=== PATIENT | male | born 1970 | race Caucasian/White ===

== ENCOUNTER → 2020-12-21 20:18 | Outpatient (REF) | payer BC, SELFPAY | LOC: HO.SL 20:18 | PROVIDERS: Visit Provider Otolaryngology | DX: R06.83 Snoring (principal); F51.11 Primary hypersomnia; G47.39 Other sleep apnea | CPT/HCPCS: 95810 ==

== ENCOUNTER 2024-03-12 18:51 | Emergency (ER) | payer BC, SELFPAY ==
--- NOTE | ~2024-03-12 | US_ITS ---
EXAMINATION: US ABDOMEN LIMITED CLINICAL INFORMATION: Right upper quadrant pain with nausea and vomiting. COMPARISON: None available. TECHNIQUE: Real-time imaging of the gallbladder and common bile duct only was performed. FINDINGS: GALLBLADDER: The gallbladder is slightly distended but without evidence of stones, sludge, polyps, wall thickening or pericholecystic fluid. Dennis's sign is positive. COMMON BILE DUCT: Normal in caliber measuring 0.4 cm in diameter. US/US abdomen limited IMPRESSION: Normal-appearing gallbladder and common bile duct. However, Dennis's sign is positive. Electronically signed by: Mikey Padilla MD 03/13/2024 12:35 AM EDT
--- NOTE | ~2024-03-12 | CT_ITS ---
EXAMINATION: CT ABDOMEN AND PELVIS WITH CONTRAST CLINICAL INFORMATION: Abdominal pain. COMPARISON: None available. TECHNIQUE: Multidetector volumetric images were obtained from the superior aspect of the liver through the pubic symphysis following administration 85 mL of Omnipaque 350 intravenous contrast. Sagittal and coronal reformatted images were obtained on the technologist's workstation. Oral contrast: No This CT examination was performed using dose optimization techniques as appropriate, variously including the following: *Automated exposure control *Adjustment of mA and/or kV according to patient size (this includes techniques or standardized protocols for targeted exams where dose is matched to indication/reason for exam; i.e. extremities or head) *Use of iterative reconstruction technique DLP: 950 mGy-cm FINDINGS: LUNG BASES: There is mild scarring at the anterior left lung base. LIVER, GALLBLADDER, AND BILIARY TREE: The liver is slightly irregular in contour. No focal liver lesions are seen. There is no intrahepatic biliary duct dilatation. Single small gallstone is noted. PANCREAS: Unremarkable. SPLEEN: Spleen is mildly enlarged measuring up to 15 cm. ADRENAL GLANDS: Unremarkable. KIDNEYS AND URETERS: The kidneys are normal in size, shape, and attenuation. No hydronephrosis, hydroureter, or calculi seen. No perinephric stranding. There are scattered bilateral renal cysts measuring up to 2.5 cm mid upper pole right kidney. There is no hydronephrosis. BLADDER: Unremarkable. GASTROINTESTINAL TRACT: The small and large bowel are unremarkable. There is thickening of the visualized distal esophagus. The appendix is unremarkable. ABDOMINAL WALL: No significant hernia is appreciated. LYMPH NODES: Normal. VASCULAR: There is mild atherosclerotic plaque of the abdominal aorta. PELVIC VISCERA: Unremarkable. OSSEOUS STRUCTURES: There is diffuse thoracolumbar degenerative change. CT/CT abdomen pelvis w IV con IMPRESSION: Slightly irregular contour of the liver and mild splenomegaly suggestive of hepatocellular disease/early cirrhosis. Clinical correlation needed. Single small gallstone. Bilateral renal cysts. Thickening of the visualized distal esophagus possibly esophagitis. Fleischner guidelines were followed. Electronically signed by: Martin Fischer MD 03/13/2024 01:46 AM EDT
[2024-03-12 19:32] VITALS: BP 154/94; PULSE 91; RESP 16; TEMP 37; O2SAT 98; BMI 32.1
--- NOTE | 2024-03-12 19:34 | ED_ITS ---
HPI - Nausea/Vomiting/Diarrhea General Chief complaint: Abdominal Pain Stated complaint: vomiting, dehydration. Sent from urgent care Time Seen by Provider: 03/12/24 22:29 Source: patient and old records reviewed Mode of arrival: ambulatory Limitations: no limitations History of Present Illness ED Provider: KEVIN RAY Narrative: 53 yo male with PMH of HTN, DM here with c/o RUQ pain and n/v since Sunday. He has not been able to eat or drink due to vomiting. He also notes no BM since then but he is not eating. He has not had abdominal surgery in the past. He denies prior hx of this in in the past. He is blaming his symptoms on undercooked sausage at [employer]. He denies sick contacts or travel. MD elicited complaint: nausea, vomiting and abdominal pain Onset (ago): day(s) (Sunday) Description of vomiting: food contents Associated nausea: Yes Associated abdominal pain: Yes Location of pain: epigastric and RUQ Radiation: diffuse Pain consistency: constant Severity: moderate Quality: aching Exacerbating factors: eating Relieving factors: none Associated symptoms: loss of appetite, malaise, nausea/vomiting and other (constipation) Related Data Previous Rx's ?Medication ?Instructions ?Recorded famotidine 20 mg tablet (Pepcid) 20 mg PO DAILY PRN abdominal 03/13/24 discomfort #30 tabs ondansetron 4 mg disintegrating 4 mg PO Q8H PRN nausea and 03/13/24 tablet vomiting #20 tabs Allergies Allergy/AdvReac Type Severity Reaction Status Date / Time No Known Allergies Allergy Verified 03/12/24 19:38 Review of Systems 2 Review of Systems: Constitutional : No Weight loss, No Fever, No Chills ENT/Mouth : No sore throat, No Rhinorrhea Eyes: No Swelling, No Redness Cardiovascular : No Chest Pain, No SOB, NoEdema Respiratory : No Cough, No Sputum, No Wheezing Gastrointestinal : Positive Nausea, Positive Vomiting, no Diarrhea, positive abdominal Pain, No Hematochezia, No Melena, pos constipation Genitourinary : No Dysuria, No Urinary Frequency, No Hematuria, No Urgency Musculoskeletal : No joint pain, No Myalgias, No Joint Swelling Skin : No Skin Lesions, No rash Neuro : No Weakness, No Numbness, No Dizziness, No Headache Psych : No Anxiety/Panic, No Depression All other systems reviewed and are negative. Gastrointestinal: Gastrointestinal: Reports nausea PMFSH Past Medical History Attestation statement: The following information was validated with the patient. Source: old records reviewed Medical History Diabetes mellitus HTN (hypertension) Social History Social History Smoked in Last 30 Days: No Use of substances other than those prescribed or required for medical reasons: No Advance Directives: No Advance Directives Information Provided: No Do you have a plan to hurt others: No Plan Physical Exam 2 Vital Signs: Vital Signs: Last Vital Signs Temp 99.5 F 03/12/24 23:47 Pulse 72 03/12/24 23:47 Resp 18 03/12/24 23:47 BP 165/86 H 03/12/24 23:47 Pulse Ox 99 03/12/24 23:47 O2 Del Method Room Air 03/12/24 23:47 BMI result Body Mass Index 32.1 Appearance: Alert. Oriented X3. No acute distress. Eyes: Pupils equal, round and reactive to light. ENT: Pharynx normal. Neck: Normal inspection. Neck supple. CVS: Normal heart rate and rhythm. Pulses normal. Respiratory: No respiratory distress. Breath sounds normal. Abdomen: Soft and moderate RUQ ttp + yeh's sign Skin: Skin warm and dry. Normal skin color. Normal skin turgor. Extremities: No lower extremity edema. Neuro: Oriented X 3. No motor deficit. No sensory deficit. Course Course Course Narrative: This is a Rapid Medical Exam performed in triage by Starr Vieira PA-C. Full HPI, ROS and PE to be performed by primary ED provider. 53 yo M presenting to the ED c/o upper abdominal pain, nausea, vomiting, constipation x Sunday night. +intermittent fever (Tmax 102). Admits had a sausage that may have been undercooked prior to sx. Feels like he needs to have BM but cannot, last BM .. is passing gas. denies rectal pressure, diarrhea. sent to ED from for suspected dehydration. PE: soft, mild epigastric tenderness. Plan: labs, UA Medications Administered Discontinued Medications Generic Name Dose Route Start Last Admin Trade Name Freq PRN Reason Stop Dose Admin Sodium Chloride 1,000 mls @ 999 mls/hr 03/12/24 19:45 03/13/24 00:25 Ns IV 03/12/24 20:45 Infused .Q1H1M CASEY Infusion Sodium Chloride 1,000 mls @ 999 mls/hr 03/12/24 22:49 03/13/24 00:25 Ns IV 03/12/24 23:49 Infused .Q1H1M ONE Infusion Iohexol 85 ml 03/13/24 00:36 03/13/24 00:37 Iohexol 350 Mg/Ml 100 Ml Infus..Btl IV 03/13/24 00:37 85 ml ONCE ONE Administration Ketorolac Tromethamine 15 mg 03/12/24 22:49 03/12/24 23:03 Ketorolac Tromethamine 15 Mg/Ml Vial IVPUSH 03/12/24 22:50 15 mg ONCE ONE Administration Ondansetron HCl 4 mg 03/12/24 22:49 03/12/24 23:03 Ondansetron Hcl 4 Mg/2 Ml Vial IVPUSH 03/12/24 22:50 4 mg ONCE ONE Administration Medical Decision Making Medical Decision Making [facility] Narrative: 53 yo male with PMH of HTN, DM here with c/o RUQ pain nausea and constipation since Sunday at this time will obtain basic labs, US to evaluate for GB pathology - IVF x 2L, toradol and zofran ordered. Differential Diagnosis Differential Diagnoses: The differential diagnosis associated with the presentation includes gastritis, GERD, biliary colic, pancreatitis Admission/Observation Consideration of admission/observation: Escalation of care including admission/observation considered Lab Data [facility] Lab Attestation statement: I reviewed the patient's lab results. 03/12/24 20:24 03/12/24 20:24 Labs: Lab Results 03/12/24 Range/Units 20:24 WBC 9.8 (4.8-10.8) X10*3/uL RBC 5.69 (4.60-5.80) X10*6/uL Hgb 19.0 H (14.0-18.0) g/dl Hct 50.9 (42.0-52.0) % MCV 89.5 (80.0-98.0) fL MCH 33.4 H (27.0-33.0) pg MCHC 37.3 H (31.0-36.0) g/dl RDW 12.2 (11.0-16.0) % Plt Count 217 (160-400) X10*3/uL MPV 10.2 (9.4-12.4) fL Immature Gran % (Auto) 0.3 (0.0-0.4) % Neut % (Auto) 66.8 (45-73) % Lymph % (Auto) 22.8 (20-40) % [place] % (Auto) 8.7 (2-11) % Eos % (Auto) 0.5 (0-4) % Baso % (Auto) 0.9 (0-2) % Lymph # (Auto) 2.2 (1.2-4.9) X10*3/uL [place] # (Auto) 0.9 (0.1-1.2) X10*3/uL Eos # (Auto) 0.1 (0.0-0.4) X10*3/uL Baso # (Auto) 0.1 (0.0-0.2) X10*3/uL Abs Immat Gran (auto) 0.03 (0.00-0.03) X10*3/uL Absolute Neuts (auto) 6.5 (2.0-8.3) x10*3/uL Absolute Nucleated RBC 0.000 (0.0-0.012) X10*3/uL Nucleated RBC % (auto) 0.0 (0.0-0.2) /100WBC Sodium 139 (135-145) mmol/L Potassium 3.4 (3.3-5.1) mmol/L Chloride 104 (96-108) mmol/L Carbon Dioxide 23 (22-29) mmol/L Anion Gap 15 (12-20) BUN 7 L (9-16) mg/dL Creatinine 0.81 (0.5-1.4) mg/dL Estim Creat Clear Calc 118.3 Estimated GFR > 60 Random Glucose 121 H (60-115) mg/dL Calcium 10.0 (8.4-10.2) mg/dL Magnesium 2.5 (1.6-2.6) mg/dL Total Bilirubin 1.7 H (0.0-1.0) mg/dL Direct Bilirubin 0.6 H (0.0-0.5) mg/dL AST 17 (5-37) U/L ALT 26 (0-40) U/L Alkaline Phosphatase 70 (39-117) U/L Total Protein 8.1 H (6.5-8.0) g/dL Albumin 5.0 (3.5-5.0) g/dL Lipase 30 (8-78) U/L Urine Color Dark Yellow Urine Appearance Clear Urine pH 7.0 (5.0-9.0) Ur Specific [place] 1.020 (1.005-1.025) Urine Protein Trace (Neg-Trace) mg/dL Urine Glucose (UA) Negative (Negative) mg/dL Urine Ketones 15 (Negative) mg/dL Urine Blood Negative (Negative) Urine Nitrite Negative (Negative) Ur Leukocyte Esterase Trace H (Negative) Urine RBC 0-2 (0-2) /HPF Urine WBC 0-5 (0-5) /HPF Ur Squamous Epith Cells 0-2 (0-2) /HPF Urine Bacteria None Seen (None Seen) Hyaline Casts 0-2 (0-2) /LPF Influenza Type A (PCR) NEGATIVE (Negative) Influenza Type B (PCR) NEGATIVE (Negative) RSV RNA Qual (PCR) NEGATIVE (Negative) SARS-CoV-2 RNA (RT-PCR) NEGATIVE (Negative) Independent Interpretation I performed an independent interpretation of an: Ultrasound (normal ) and CT Scan Radiology Impression Discussion of test interpretation with radiology: I have reviewed the radiologist's reading. External Record Review External record reviewed: Office record Prescription Management I considered prescription management with: Other Discharge Plan Discharge Clinical Impression: Abdominal pain Qualifiers: Abdominal location: right upper quadrant Qualified Code(s): R10.11 - Right upper quadrant pain Nausea & vomiting Qualifiers: Vomiting type: unspecified Qualified Code(s): R11.2 - Nausea with vomiting, unspecified Gallstone Qualifiers: Cholecystitis presence: without cholecystitis Biliary obstruction: without biliary obstruction Qualified Code(s): K80.20 - Calculus of gallbladder without cholecystitis without obstruction Patient Disposition: Home, Self-Care Instructions: Acute Nausea and Vomiting (ED), Abdominal Pain (ED) Additional Instructions: eat a bland diet return for any worsening symptoms or concerns ultrasound of the gallbladder was normal stay hydrated follow up with your doctor as needed Prescriptions: New famotidine [Pepcid] 20 mg tablet 20 mg PO DAILY PRN (Reason: abdominal discomfort) Qty: 30 0RF ondansetron 4 mg tablet,disintegrating 4 mg PO Q8H PRN (Reason: nausea and vomiting) Qty: 20 0RF Stand Alone Forms: Work/School Release Discharge Date/Time: 03/13/24 03:10 Print Language: Spanish
--- NOTE | 2024-03-12 20:25 | MHC.EDTECH ---
Patient brought into triage area,labs,sars/flu/rsv,and urine obtained and sent to lab.
[2024-03-12 20:33] LABS: MANUAL DIFF FLAG NO
[2024-03-12 20:36] LABS: Appearance Urine Clear; Color Urine Dark Yellow; Glucose Urine UA Negative (Negative); Leukocyte Esterase Urine Trace (Negative); Nitrite Urine Negative (Negative); UMIC TRIGGER UACC YES; Urine Blood Negative (Negative); Urine Ketones 15 mg/dL (Negative); Urine Protein Trace mg/dL (Neg-Trace)
[2024-03-12 20:38] LABS: Bacteria Urine None Seen (None Seen); Hyaline Casts Urine 0-2 /LPF (0-2); RBC Urine 0-2 /HPF (0-2); Squamous Epithelial Cell Urine 0-2 /HPF (0-2); WBC Urine 0-5 /HPF (0-5)
[2024-03-12 21:01] LABS: Alanine Aminotransferase 26 U/L (0-40); Alkaline Phosphatase 70 U/L (39-117); Anion Gap 15 (12-20); Aspartate Amino Transferase 17 U/L (5-37); Bilirubin Direct 0.6 mg/dL (0.0-0.5); Bilirubin Total 1.7 mg/dL (0.0-1.0); Blood Urea Nitrogen 7 mg/dL (9-16); Carbon Dioxide 23 mmol/L (22-29); Chloride 104 mmol/L (96-108); Creatinine Clr Calc Pharmacy 118.3; Estimated Glomerular Filt Rate > 60; Glucose Random 121 mg/dL (60-115); Lipase 30 U/L (8-78); Magnesium 2.5 mg/dL (1.6-2.6); Potassium 3.4 mmol/L (3.3-5.1); Sodium 139 mmol/L (135-145); Total Protein 8.1 g/dL (6.5-8.0)
[2024-03-12 21:10] LABS: Basophils Absolute Auto 0.1 X10*3/uL (0.0-0.2); Basophils Percent Auto 0.9 % (0-2); Eosinophils Absolute Auto 0.1 X10*3/uL (0.0-0.4); Eosinophils Percent Auto 0.5 % (0-4); Hematocrit 50.9 % (42.0-52.0); Imm Gran Abs Auto 0.03 X10*3/uL (0.00-0.03); Imm Gran Pct Auto 0.3 % (0.0-0.4); Lymphocytes Absolute Auto 2.2 X10*3/uL (1.2-4.9); Lymphocytes Percent Auto 22.8 % (20-40); Mean Corpuscular HGB Conc 37.3 g/dl (31.0-36.0); Mean Corpuscular Hemoglobin 33.4 pg (27.0-33.0); Mean Corpuscular Volume 89.5 fL (80.0-98.0); Mean Platelet Volume 10.2 fL (9.4-12.4); Monocytes Absolute Auto 0.9 X10*3/uL (0.1-1.2); Monocytes Percent Auto 8.7 % (2-11); Neutrophils Absolute Auto 6.5 x10*3/uL (2.0-8.3); Neutrophils Percent Auto 66.8 % (45-73); Platelet Count 217 X10*3/uL (160-400); Red Blood Count 5.69 X10*6/uL (4.60-5.80); Red Cell Distribution Width 12.2 % (11.0-16.0); White Blood Count 9.8 X10*3/uL (4.8-10.8)
[2024-03-12 21:20] LABS: Influenza A PCR NEGATIVE (Negative); Influenza B PCR NEGATIVE (Negative); Resp Syncy Virus RNA Qual PCR NEGATIVE (Negative); SARS COV2 PCR INHOUSE NEGATIVE (Negative)
[2024-03-12 22:31] VITALS: BP 191/101; PULSE 81; RESP 16; TEMP 37.3; O2SAT 97
[2024-03-12 22:34] VITALS: BP 158/95
[2024-03-12] MEDS: 0.9 % Sodium Chloride 1,000 ML 999 ML IV ×2 (22:37→23:03)
--- NOTE | 2024-03-12 22:41 | PC.NURSE ---
a&ox4. vss and up to date aside from being hypertensive. pt verbalizes recent dx of HTN - unaware on what he takes for BP medication. pt c/o 09/25 upper abd pain w/ associated n/v/constipation x sunday. pt also reports fever/chills. 20gIV placed in the right AC - IVF administered per provider order. plan of care ongoing. call willis placed within reach.
[2024-03-12] MEDS: ondansetron HCL 4 MG/2 ML VIAL IVPUSH (23:03)
[2024-03-12] MEDS: Ketorolac Tromethamine 15 MG/ML VIAL IVPUSH (23:03)
[2024-03-12 23:47] VITALS: BP 165/86; PULSE 72; RESP 18; TEMP 37.5; O2SAT 99
[2024-03-13] MEDS: iohexoL 350 MG/ML 100 ML INFUS..BTL 85 ML IV (00:37)
== END 2024-03-13 03:10 | disposition home or self-care (01) ==
PROVIDERS: Physician Assistant; Emergency Provider Emergency Medicine; PCP Internal Medicine
DX: K80.20 Calculus of gallbladder without cholecystitis without obstruction (principal); R11.2 Nausea with vomiting, unspecified; R10.11 Right upper quadrant pain; Z03.818 Encounter for observation for suspected exposure to other biological agents ruled out; E11.9 Type 2 diabetes mellitus without complications; I10 Essential (primary) hypertension
CPT/HCPCS: 0241U; 36415; 74177; 76705; 80048; 80076; 81001; 83690; 83735; 85025; 96361; 96374; 96375; 99284; 99285; J1885; J2405; Q9967